=== PATIENT | male | born 1965 | race Asian ===

== ENCOUNTER 2016-07-11 12:37 | Inpatient (IN) | payer MEDICAID, OTHER ==
[~2016-07-11] VITALS: Ht 172.7 cm; Wt 78.5 kg
[~2016-07-11 12:37] MED LIST: AMLO-511 PO; FLUD25I IM
[2016-07-11] MEDS ORDERED: BENZ2TAB10 PO (12:49)
[2016-07-11] MEDS ORDERED: RISP3 PO (12:49)
[2016-07-11] MEDS ORDERED: [UNRECOGNIZED DRUG - CODE] PO (12:49)
[2016-07-11 12:56] LABS: BASOPHILS # (AUTO) 0.08 K/uL (0.00-0.20); EOSINOPHILS % (AUTO) 5.76 % (1.0-6.0); HEMATOCRIT 42.2 % (41-53); HEMOGLOBIN 13.9 g/dL (13.5-17.5); LYMPHOCYTES # (AUTO) 1.6 K/uL (1.0-4.8); LYMPHOCYTES % (AUTO) 18.5 % (22.0-44.0); MEAN CORPUSCULAR HEMOGLOBIN 28.5 pg (26.0-34.0); MEAN CORPUSCULAR HGB CONC 32.9 G/dL (31.0-37.0); MEAN CORPUSCULAR VOLUME 87 fL (80-100); MONOCYTES # (AUTO) 0.6 K/uL (0.1-1.0); MONOCYTES % (AUTO) 6.8 % (2.0-9.0); NEUTROPHILS # (AUTO) 5.9 K/uL (1.8-7.7); PLATELET COUNT (AUTO) 328 K/uL (150-450); RED BLOOD CELL COUNT(AUTO) 4.87 MIL/uL (4.50-5.90); RED CELL DISTRIBUTION WIDTH 16.1 % (11.5-14.5); WHITE BLOOD COUNT (AUTO) 8.6 K/uL (4.5-11.0)
[2016-07-11 13:05] LABS: ANION GAP 7 mmol/L (8-16); CALCIUM, TOTAL 8.1 mg/dL (8.8-10.5); CARBON DIOXIDE 29 mmol/L (22-29); CHLORIDE 104 mmol/L (98-107); CREATININE 0.66 mg/dL (0.60-1.30); GLOMERULAR FILTR. RATE CALC > 60 mL/min (>60); SODIUM SERUM 140 mmol/L (136-145); UREA NITROGEN, BLOOD 14 mg/dL (7-18)
[2016-07-11 13:12] LABS: ALANINE AMINOTRANSFERASE 26 U/L (12-78); ASPARTATE AMINOTRANSFERASE 23 U/L (15-37); BILIRUBIN,TOTAL 0.3 mg/dL (0.1-1.0); TOTAL PROTEIN, SERUM 6.4 g/dL (6.4-8.2)
[2016-07-11] MEDS ORDERED: ZOLPIDEM TARTRATE 10 MG TABLET PO PRN (17:00)
[2016-07-11 20:28] VITALS: BP 123/77
[2016-07-11] MEDS ORDERED: -PHARMACY VACCINE NOTE- MISC ONE ×2 (20:45)
[2016-07-11] MEDS ORDERED: IBUPROFEN 400 MG TABLET PO PRN (21:00)
[2016-07-11] MEDS ORDERED: ACETAMINOPHEN 325 MG TABLET PO PRN (21:00)
[2016-07-12 03:02] VITALS: BP 131/98
[2016-07-12] MEDS: LORazepam 2 MG TABLET PO PRN ×3 (03:11→16:11)
[2016-07-12] MEDS: HALOPERIDOL 5 MG TABLET PO PRN ×3 (03:11→16:11)
[2016-07-12] MEDS: AmLODIPine BESYLATE 10 MG TABLET PO SCH (08:21)
[2016-07-12 08:27] VITALS: BP 112/72
[2016-07-12 16:06] VITALS: BP 115/69
[2016-07-12] MEDS: RisperiDONE 2 MG TABLET PO SCH ×2 (16:11→20:37)
[2016-07-12] MEDS: BENZTROPINE MESYLATE 0.5 MG TABLET PO SCH (20:36)
[2016-07-13 05:26] VITALS: BP 121/75
[2016-07-13] MEDS: BENZTROPINE MESYLATE 0.5 MG TABLET PO SCH ×2 (08:11→20:30)
[2016-07-13] MEDS: RisperiDONE 2 MG TABLET PO SCH ×2 (08:11→20:30)
[2016-07-13] MEDS: AmLODIPine BESYLATE 10 MG TABLET PO SCH (08:11)
[2016-07-13 09:00] VITALS: BP 144/98
[2016-07-13] MEDS: LORazepam 2 MG TABLET PO PRN ×2 (13:39→17:44)
[2016-07-13] MEDS: HALOPERIDOL 5 MG TABLET PO PRN ×2 (13:39→17:44)
[2016-07-13 16:00] VITALS: BP 120/89
[2016-07-14 05:02] VITALS: BP 110/89
[2016-07-14 08:09] VITALS: BP 119/68
[2016-07-14] MEDS: BENZTROPINE MESYLATE 0.5 MG TABLET PO SCH ×2 (08:30→20:16)
[2016-07-14] MEDS: AmLODIPine BESYLATE 10 MG TABLET PO SCH (08:30)
[2016-07-14] MEDS: RisperiDONE 2 MG TABLET PO SCH ×2 (08:30→20:16)
[2016-07-14 16:10] VITALS: BP 148/80
[2016-07-15 00:01] VITALS: BP 135/90
[2016-07-15 08:29] VITALS: BP 119/76
[2016-07-15 08:37] LABS: APPEARANCE,URINE CLEAR (CLEAR); GLUCOSE, URINE (UA) NEGATIVE (NEGATIVE); KETONES,URINE NEGATIVE (NEGATIVE); LEUKOCYTE ESTERASE ,URINE SMALL (NEGATIVE); OCCULT BLOOD,URINE NEGATIVE (NEGATIVE); PROTEIN,URINE NEGATIVE (NEGATIVE)
[2016-07-15 08:38] LABS: ADD UA MICROSCOPIC YES
[2016-07-15 08:42] LABS: RBC,URINE None Seen /HPF (0-2)
[2016-07-15] MEDS: RisperiDONE 2 MG TABLET PO SCH ×2 (08:53→20:33)
[2016-07-15] MEDS: HALOPERIDOL 5 MG TABLET PO PRN ×2 (08:53→16:53)
[2016-07-15] MEDS: AmLODIPine BESYLATE 10 MG TABLET PO SCH (08:53)
[2016-07-15] MEDS: LORazepam 2 MG TABLET PO PRN ×2 (08:53→16:53)
[2016-07-15] MEDS: BENZTROPINE MESYLATE 0.5 MG TABLET PO SCH ×2 (08:53→20:33)
[2016-07-15 16:00] VITALS: BP 123/74
[2016-07-16 03:48] VITALS: BP 120/62
[2016-07-16 08:18] VITALS: BP 114/68
[2016-07-16] MEDS: AmLODIPine BESYLATE 10 MG TABLET PO SCH (08:21)
[2016-07-16] MEDS: BENZTROPINE MESYLATE 0.5 MG TABLET PO SCH ×2 (08:21→21:43)
[2016-07-16] MEDS: LORazepam 2 MG TABLET PO PRN ×2 (08:21→15:52)
[2016-07-16] MEDS: RisperiDONE 2 MG TABLET PO SCH ×2 (08:21→21:40)
[2016-07-16] MEDS: HALOPERIDOL 5 MG TABLET PO PRN ×2 (08:21→15:52)
[2016-07-16 16:00] VITALS: BP 123/69
[2016-07-17 00:46] VITALS: BP 105/74
[2016-07-17] MEDS: LORazepam 2 MG TABLET PO PRN (08:47)
[2016-07-17] MEDS: AmLODIPine BESYLATE 10 MG TABLET PO SCH (08:47)
[2016-07-17] MEDS: RisperiDONE 2 MG TABLET PO SCH ×2 (08:47→20:29)
[2016-07-17] MEDS: BENZTROPINE MESYLATE 0.5 MG TABLET PO SCH ×2 (08:47→20:29)
[2016-07-17 09:06] VITALS: BP 124/76
[2016-07-17 16:26] VITALS: BP 136/69
[2016-07-18 01:31] VITALS: BP 105/69
[2016-07-18 08:33] VITALS: BP 132/77
[2016-07-18] MEDS: RisperiDONE 2 MG TABLET PO SCH ×2 (10:00→21:51)
[2016-07-18] MEDS: BENZTROPINE MESYLATE 0.5 MG TABLET PO SCH ×2 (10:00→21:50)
[2016-07-18] MEDS: AmLODIPine BESYLATE 10 MG TABLET PO SCH (10:00)
[2016-07-18 16:17] VITALS: BP 125/64
[2016-07-19 00:38] VITALS: BP 129/75
[2016-07-19 08:24] VITALS: BP 143/77
[2016-07-19] MEDS: RisperiDONE 2 MG TABLET PO SCH ×2 (09:35→20:44)
[2016-07-19] MEDS: AmLODIPine BESYLATE 10 MG TABLET PO SCH (09:36)
[2016-07-19] MEDS: BENZTROPINE MESYLATE 0.5 MG TABLET PO SCH ×2 (09:36→20:44)
[2016-07-19 17:44] VITALS: BP 131/91
[2016-07-20 05:05] VITALS: BP 128/70
[2016-07-20 09:00] VITALS: BP 138/71
[2016-07-20] MEDS: RisperiDONE 2 MG TABLET PO SCH (09:53)
[2016-07-20] MEDS: AmLODIPine BESYLATE 10 MG TABLET PO SCH (09:53)
[2016-07-20] MEDS: BENZTROPINE MESYLATE 0.5 MG TABLET PO SCH (09:53)
[2016-07-20] MEDS ORDERED: RISP2 PO (12:24)
[2016-07-20] MEDS ORDERED: BENZ0.5T6 PO (12:28)
[2016-07-20] MEDS ORDERED: AMLO-512 PO (12:28)
== END 2016-07-20 14:05 | disposition home or self-care (01) | DRG 750 ==
LOC: EEVIPCON 12:37 → EMS 12:39 → B3A 18:23 → B2S 07-16 18:48
PROVIDERS: ADMIT Psychiatry & Neurology Child & Adolescent Psychiatry; ATTEND Psychiatry & Neurology Child & Adolescent Psychiatry
DX: F25.1 Schizoaffective disorder, depressive type (principal); F22 Delusional disorders; I10 Essential (primary) hypertension; E78.00 Pure hypercholesterolemia, unspecified; F17.210 Nicotine dependence, cigarettes, uncomplicated; E78.5 Hyperlipidemia, unspecified; F19.10 Other psychoactive substance abuse, uncomplicated; Z71.51 Drug abuse counseling and surveillance of drug abuser; R45.87 Impulsiveness
CPT/HCPCS: 80307; 84443; 99285; G0480